=== PATIENT | female | born 1935 | race African-American/Black ===

== ENCOUNTER → 2018-03-08 | Day surgery (SDC) | payer OTHER ==
[~2018-03-08] MED LIST: HYDROCHLOROTH12.5 M2 PO; LEVOTHYROXINE75 MCG PO; LOSARTAN POTAS100 M1 PO; METOPROLOL SUCC25 M2 PO
--- NOTE | ~2018-03-08 | O ---
[place], [place] OPERATIVE NOTE NAME: [facility]IAN [facility]ARDSON [id number] UNIT #: [id number] ROOM: DOCTOR: AFUA CARTWRIGHT MD BIRTHDATE: [birth year] DOS: 03/08/2018 PREOPERATIVE DIAGNOSIS: Cataract, right eye. POSTOPERATIVE DIAGNOSIS: Cataract, right eye. OPERATION: Extracapsular cataract extraction by phacoemulsification with posterior chamber intraocular lens implantation, right eye. ANESTHESIA: Monitored standby. OPERATIVE FINDINGS AND PROCEDURE: 2% Xylocaine topical anesthetic gel was applied to the eye in the preop area. The patient was taken to the operating room and prepped and draped in the standard fashion for sterile intraocular surgery. A time out procedure was performed verifying correct patient, correct site and corrects lens with Genevieve Cartwright M.D. The operating microscope was swung into position and the lid speculum was inserted. Using a Mely paracentesis blade, a paracentesis was made through clear cornea. Viscoelastic was used to fill the anterior chamber. Using a metal keratome a 2.4 mm self-sealing clear corneal cataract incision was made temporally at the limbus. Using a pre-bent 25 gauge cystotome needle, a standard continuous curvilinear capsulorrhexis was performed. The anterior capsule was removed with forceps. The lens nucleus was hydrodissected and phacoemulsified in the posterior chamber. Cortical material was removed with the irrigation aspiration hand piece and the posterior capsule was then polished with a curet under irrigation. The posterior chamber and capsular bag were filled with viscoelastic. A posterior chamber intraocular lens manufactured by: [employer], Model #[id number] and 20.5 diopters, right eye in strength were then inserted into the posterior chamber and within the capsular bag using the lens cartridge and injector system. Viscoelastic was removed using the irrigation aspiration handpiece. The anterior chamber was filled with balanced salt solution through the paracentesis. Both the paracentesis site and cataract incisions were hydrated with BSS and verified to be water-tight and self-sealing. The incision checked to be water-tight using a Weck-Vira sponge. The integrity of the cataract wound and ocular tension were checked. Lid speculum and drapes were removed. The patient was transferred from the operating room to the recovery room in satisfactory condition. [place], [place] OPERATIVE NOTE NAME: FABIAN RICHARDSON UNIT #: [id number] ROOM: DOCTOR: AFUA CARTWRIGHT MD BIRTHDATE: [birth year] AFUA CARTWRIGHT MD CM:OPRECORD:OPERATIVE NOTE [id number] AFUA CARTWRIGHT MD 03/08/18 1521 interface
[2018-03-08 11:06] VITALS: BP 180/74
[2018-03-08 11:47] VITALS: BP 137/64
[2018-03-08 12:02] VITALS: BP 151/73
[2018-03-08 12:17] VITALS: BP 154/74
== END | disposition home or self-care (01) ==
DX: H25.811 Combined forms of age-related cataract, right eye (principal); I10 Essential (primary) hypertension; J45.909 Unspecified asthma, uncomplicated; M06.80 Other specified rheumatoid arthritis, unspecified site; Z98.51 Tubal ligation status; Z88.1 Allergy status to other antibiotic agents; Z79.899 Other long term (current) drug therapy; Z82.49 Family history of ischemic heart disease and other diseases of the circulatory system